=== PATIENT | female | born 1945 | race Caucasian/White ===

== ENCOUNTER 2017-03-25 06:43 | Emergency (ER) | payer MEDICARE ==
[~2017-03-25] VITALS: Ht 152.4 cm; Wt 109.1 kg
[~2017-03-25 06:43] MED LIST: ASPIRIN E.C. 8181 MG PO; LANTUS SOLOS100 U/ML SC; METFORMIN ER500 MG PO; NO HOME MEDICATIONS; PLAVIX 75MG TAB75 MG PO; ZOCOR40 MG PO
[2017-03-25 06:45] VITALS: TEMP 97.6
[2017-03-25 07:38] LABS: BASO # 0.1 (0.0-0.2); BASO % 0.5 % (0.0-2.0); EOS % 0.2 % (0-4.0); GRAN # 10.8 (1.4-6.5); GRAN % 82.6 % (42.2-75.2); HEMATOCRIT 40.1 % (37.0-47.0); HEMOGLOBIN 13.1 g/dl (12.5-16.0); LYMPH # 1.4 (1.2-3.4); LYMPH % 11.1 % (20.0-51.0); MEAN CELL VOLUME 88 fl (80.0-100.0); MEAN CORPUSCULAR HEMOGLOBIN 29 pg (27.0-31.0); MEAN CORPUSCULAR HGB CONC 33 g/dl (33.0-37.0); MEAN PLATELET VOLUME 11.4 fl (7.4-10.4); MONO # 0.7 (0.1-0.6); PLATELET COUNT 274 K/mm3 (130-400); RED BLOOD COUNT 4.55 M/mm3 (4.10-5.30)
[2017-03-25] MEDS ORDERED: ASPIRIN 81M81 MG/TA2 PO (07:41)
[2017-03-25 07:42] LABS: ADJUSTED CALCIUM 8.7 mg/dL (8.4-10.2); CALCIUM 8.7 mg/dL (8.4-10.2); CREATININE, serum 1.05 mg/dL (0.52-1.25); TOTAL PROTEIN 7.7 gm/dL (6.4-8.2)
[2017-03-25 08:00] LABS: TROPONIN-I 0.214 ng/mL (0.000-0.034)
[2017-03-25 08:01] LABS: POTASSIUM 4.5 mmol/L (3.4-5.0)
[2017-03-25 08:09] VITALS: BP 146/75; PULSE 82
[2017-03-25 08:56] LABS: PARTIAL THROMBOPLASTIN TIME 21.7 SECONDS (26.0-37.0)
[2017-03-25 09:09] LABS: INR 1.1 (0.8-3.0); PROTHROMBIN TIME 12.5 SECONDS (9.7-12.8)
== END 2017-03-25 08:00 | disposition short-term general hospital (02) ==
LOC: COL.ER 06:43
PROVIDERS: Emergency Medicine
DX: I21.29 ST elevation (STEMI) myocardial infarction involving other sites (principal); I11.0 Hypertensive heart disease with heart failure; I50.9 Heart failure, unspecified; E11.9 Type 2 diabetes mellitus without complications; Z86.73 Personal history of transient ischemic attack (TIA), and cerebral infarction without residual deficits
CPT/HCPCS: J1644; J3101

== ENCOUNTER 2017-07-08 14:47 | Outpatient (RCR) | payer MEDICARE ==
[~2017-07-08 14:47] MED LIST changes: +ASPIRIN 81M81 MG/TA2 PO
== END 2017-07-14 | disposition home or self-care (01) ==
LOC: COL.CR
DX: I21.3 ST elevation (STEMI) myocardial infarction of unspecified site (principal)

== ENCOUNTER → 2021-03-07 | Outpatient (CLI) | payer MEDICARE | LOC: COL.RAD 12:01 | DX: N18.32 Chronic kidney disease, stage 3b (principal); E21.1 Secondary hyperparathyroidism, not elsewhere classified ==